=== PATIENT | male | born 1965 | race Caucasian/White ===

== ENCOUNTER 2019-12-17 19:08 | Emergency (ER) | payer OTHER, MEDICARE ==
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
== END 2019-12-17 23:09 | disposition home or self-care (01) ==
LOC: JD.ED 19:08 → EDBD 19:08 → JD.ED 23:09
DX: S40.012A Contusion of left shoulder, initial encounter (principal); I25.10 Atherosclerotic heart disease of native coronary artery without angina pectoris; V59.9XXA Occupant (driver) (passenger) of pick-up truck or van injured in unspecified traffic accident, initial encounter
CPT/HCPCS: 36415; 71046; 71046-26; 85025; 99282; 99285-25